=== PATIENT | female | born 1965 | race American Indian/Alaskan Native ===

== ENCOUNTER 2017-07-03 12:48 | Emergency (ER) | payer SELFPAY ==
[2017-07-03] MEDS ORDERED: ASPIRIN PO ONE (13:19)
[2017-07-03] MEDS ORDERED: ZOFRAN IV ONE (18:01)
[2017-07-03] MEDS ORDERED: MORPHINE IV ONE (18:01)
[2017-07-03] MEDS ORDERED: NACL 0.9% 1000 ML 1,000 ML IV ONE (18:01)
[2017-07-03] MEDS ORDERED: PEPCID IV ONE (18:02)
--- NOTE | 2017-07-03 18:10 | Emergency Department Report ---
ED Chest Pain HPI - General Chief Complaint: Chest Pain Stated Complaint: BACK/LEG PAIN Time Seen by Provider: 07/03/17 17:50 Source: patient, family, old records reviewed (no previous [facility] visit) Mode of arrival: Ambulatory Limitations: No Limitations - History of Present Illness Initial Comments: 51-year-old female with a past medical history obesity, DVT, PE currently not on any anticoagulant medication presents to the hospital complains of nausea and vomiting 2 days and chest and back pain. Patient has been having vomiting with poor by mouth tolerance 2 days. She states the panic starts in the middle of her mid back and radiates to her abdomen prior to vomiting. She has had mid central back pain for at least 2 weeks and has gradually worsened. She claims of pain to the lower part of her sternum that is reproducible with palpation. Occasional dyspnea on exertion reported. Mild generalized abdominal cramping reported prior to vomiting. She denies diarrhea or fever. Patient was apparently at another hospital 2 weeks ago with complaints of leg swelling and had a negative "blood times for blood clot". Patient took herself off of Eliquis several months ago. - Related Data Previous Rx's Medication Instructions Recorded Last Taken Type Docusate Sodium [Colace] 100 mg PO BID PRN #20 capsule 07/04/17 Unknown Rx Famotidine [Pepcid] 20 mg PO BID #30 tablet 07/04/17 Unknown Rx HYDROcodone/APAP 5-325 [[place] 1 each PO Q6HR PRN #20 tablet 07/04/17 Unknown Rx 5/325] Ibuprofen [Motrin] 800 mg PO Q8HR PRN #30 tablet 07/04/17 Unknown Rx Ondansetron [Zofran Odt] 4 mg PO Q8HR PRN #20 tab.rapdis 07/04/17 Unknown Rx Allergies Allergy/AdvReac Type Severity Reaction Status Date / Time No Known Allergies Allergy Unverified 07/03/17 13:09 Heart Score - HEART Score History: Slightly suspicious EKG: Normal Age: 45-65 Risk factors: 1-2 risk factors Troponin: < normal limit HEART Score: 2 ED Review of Systems ROS: Stated complaint: BACK/LEG PAIN Other details as noted in HPI Comment: All other systems reviewed and negative ED Past Medical Hx - Past Medical History Previous Medical History?: Yes Hx Deep Vein Thrombosis: Yes Hx Pulmonary Embolism: Yes Additional medical history: swelling lower extremities; back pain - Surgical History Past Surgical History?: Yes Additional Surgical History: tubaligation 1987 - Social History Smoking Status: Never Smoker Substance Use Type: None - Medications Home Medications: Home Medications Medication Instructions Recorded Confirmed Last Taken Type Docusate Sodium [Colace] 100 mg PO BID PRN #20 capsule 07/04/17 Unknown Rx Famotidine [Pepcid] 20 mg PO BID #30 tablet 07/04/17 Unknown Rx HYDROcodone/APAP 5-325 [[place] 1 each PO Q6HR PRN #20 tablet 07/04/17 Unknown Rx 5/325] Ibuprofen [Motrin] 800 mg PO Q8HR PRN #30 tablet 07/04/17 Unknown Rx Ondansetron [Zofran Odt] 4 mg PO Q8HR PRN #20 tab.rapdis 07/04/17 Unknown Rx ED Physical Exam - General Limitations: No Limitations - Other Other exam information: General: No limitations, patient is alert in no acute distress Head exam: Atraumatic, normocephalic Eyes exam: Normal appearance, pupils equal reactive to light, extraocular movements intact ENT: Moist mucous membrane, normal oropharynx Neck exam: Normal inspection, full range of motion, no meningismus nontender Respiratory exam: Clear to auscultation bilateral, no wheezes, rales, crackles Cardiovascular: Normal rate and rhythm, tenderness to the xiphoid process Abdomen: Soft, nondistended, and nontender, with normal bowel sounds, no rebound, or guarding Extremity: Full range of motion, bilateral leg edema without calf tenderness, warmth, or erythema Back: Normal Inspection, full range of motion, tenderness to midline thoracic lumbar area Neurologic: Alert, oriented x3, cranial nerves intact, no motor or sensory deficit Psychiatric: normal affect, normal mood Skin: Warm, dry, intact ED Course Vital Signs 07/03/17 07/03/17 07/03/17 13:09 18:02 18:16 Temperature 98.0 F Pulse Rate 74 75 83 Respiratory 18 15 12 Rate Blood Pressure 132/74 O2 Sat by Pulse Oximetry 07/03/17 07/03/17 07/03/17 18:46 19:00 19:16 Temperature Pulse Rate 64 88 Respiratory 18 16 Rate Blood Pressure 143/71 125/53 124/60 O2 Sat by Pulse 100 100 93 Oximetry 07/03/17 07/03/1718 19:30 19:46 20:00 Temperature Pulse Rate 71 70 68 Respiratory 10 L 14 17 Rate Blood Pressure 129/52 133/52 124/50 O2 Sat by Pulse 100 98 100 Oximetry 07/03/17 07/03/17 21:07 23:47 Temperature Pulse Rate 80 Respiratory 20 16 Rate Blood Pressure 120/57 O2 Sat by Pulse 100 98 Oximetry ED Medical Decision Making - Lab Data Result diagrams: 07/03/17 18:15 07/03/17 20:45 Lab Results 07/03/17 07/03/17 07/03/17 Range/Units 13:07 18:15 18:15 WBC 12.4 H (4.5-11.0) K/mm3 RBC 3.97 (3.65-5.03) M/mm3 Hgb 12.1 (10.1-14.3) gm/dl Hct 37.7 (30.3-42.9) % MCV 95 (79-97) fl MCH 31 (28-32) pg MCHC 32 (30-34) % RDW 14.1 (13.2-15.2) % Plt Count 299 (140-440) K/mm3 Lymph % (Auto) 16.8 (13.4-35.0) % Nelson % (Auto) 4.2 (0.0-7.3) % Eos % (Auto) 0.3 (0.0-4.3) % Baso % (Auto) 0.5 (0.0-1.8) % Lymph # 2.1 (1.2-5.4) K/mm3 Nelson # 0.5 (0.0-0.8) K/mm3 Eos # 0.0 (0.0-0.4) K/mm3 Baso # 0.1 (0.0-0.1) K/mm3 Seg Neutrophils % 78.2 H (40.0-70.0) % Seg Neutrophils # 9.6 H (1.8-7.7) K/mm3 PT 12.5 (12.2-14.9) Sec. INR 0.89 (0.87-1.13) APTT 31.5 (24.2-36.6) Sec. D-Dimer (0-234) ng/mlDDU Sodium Potassium Chloride Carbon Dioxide Anion Gap BUN Creatinine Estimated GFR BUN/Creatinine Ratio Glucose POC Glucose 116 H (70-105) Calcium Total Bilirubin AST ALT Alkaline Phosphatase Troponin T Total Protein Albumin Albumin/Globulin Ratio Lipase (13-60) units/L Urine Color (Yellow) Urine Turbidity (Clear) Urine pH (5.0-7.0) Ur Specific [place] (1.003-1.030) Urine Protein (Negative) mg/dL Urine Glucose (UA) (Negative) mg/dL Urine Ketones (Negative) mg/dL Urine Blood (Negative) Urine Nitrite (Negative) Urine Bilirubin (Negative) Urine Urobilinogen (<2.0) mg/dL Ur Leukocyte Esterase (Negative) Urine WBC (Auto) (0.0-6.0) /HPF Urine RBC (Auto) (0.0-6.0) /HPF U Epithel Cells (Auto) (0-13.0) /HPF Urine Mucus /HPF 07/03/17 07/03/17 07/03/17 Range/Units 18:15 18:15 18:15 WBC (4.5-11.0) K/mm3 RBC (3.65-5.03) M/mm3 Hgb (10.1-14.3) gm/dl Hct (30.3-42.9) % MCV (79-97) fl MCH (28-32) pg MCHC (30-34) % RDW (13.2-15.2) % Plt Count (140-440) K/mm3 Lymph % (Auto) (13.4-35.0) % Nelson % (Auto) (0.0-7.3) % Eos % (Auto) (0.0-4.3) % Baso % (Auto) (0.0-1.8) % Lymph # (1.2-5.4) K/mm3 Nelson # (0.0-0.8) K/mm3 Eos # (0.0-0.4) K/mm3 Baso # (0.0-0.1) K/mm3 Seg Neutrophils % (40.0-70.0) % Seg Neutrophils # (1.8-7.7) K/mm3 PT (12.2-14.9) Sec. INR (0.87-1.13) APTT (24.2-36.6) Sec. D-Dimer 329.5 H (0-234) ng/mlDDU Sodium TNR Potassium TNR Chloride TNR Carbon Dioxide TNR Anion Gap TNR BUN TNR Creatinine TNR Estimated GFR TNR BUN/Creatinine Ratio TNR Glucose TNR POC Glucose (70-105) Calcium TNR Total Bilirubin TNR AST TNR ALT TNR Alkaline Phosphatase TNR Troponin T TNR Total Protein TNR Albumin TNR Albumin/Globulin Ratio TNR Lipase 31 (13-60) units/L Urine Color (Yellow) Urine Turbidity (Clear) Urine pH (5.0-7.0) Ur Specific [place] (1.003-1.030) Urine Protein (Negative) mg/dL Urine Glucose (UA) (Negative) mg/dL Urine Ketones (Negative) mg/dL Urine Blood (Negative) Urine Nitrite (Negative) Urine Bilirubin (Negative) Urine Urobilinogen (<2.0) mg/dL Ur Leukocyte Esterase (Negative) Urine WBC (Auto) (0.0-6.0) /HPF Urine RBC (Auto) (0.0-6.0) /HPF U Epithel Cells (Auto) (0-13.0) /HPF Urine Mucus /HPF 07/03/17 07/03/17 07/03/17 Range/Units 18:15 20:45 20:45 WBC (4.5-11.0) K/mm3 RBC (3.65-5.03) M/mm3 Hgb (10.1-14.3) gm/dl Hct (30.3-42.9) % MCV (79-97) fl MCH (28-32) pg MCHC (30-34) % RDW (13.2-15.2) % Plt Count (140-440) K/mm3 Lymph % (Auto) (13.4-35.0) % Nelson % (Auto) (0.0-7.3) % Eos % (Auto) (0.0-4.3) % Baso % (Auto) (0.0-1.8) % Lymph # (1.2-5.4) K/mm3 Nelson # (0.0-0.8) K/mm3 Eos # (0.0-0.4) K/mm3 Baso # (0.0-0.1) K/mm3 Seg Neutrophils % (40.0-70.0) % Seg Neutrophils # (1.8-7.7) K/mm3 PT (12.2-14.9) Sec. INR (0.87-1.13) APTT (24.2-36.6) Sec. D-Dimer (0-234) ng/mlDDU Sodium TNR 138 Potassium TNR 4.4 Chloride TNR 99.5 Carbon Dioxide TNR 23 Anion Gap TNR 20 BUN TNR 8 Creatinine TNR 0.7 Estimated GFR TNR > 60 BUN/Creatinine Ratio TNR 11 Glucose TNR 89 POC Glucose (70-105) Calcium TNR 8.9 Total Bilirubin TNR 0.40 AST TNR 15 ALT TNR 10 Alkaline Phosphatase TNR 71 Troponin T < 0.010 < 0.010 Total Protein TNR 7.0 Albumin TNR 3.7 L Albumin/Globulin Ratio TNR 1.1 Lipase (13-60) units/L Urine Color (Yellow) Urine Turbidity (Clear) Urine pH (5.0-7.0) Ur Specific [place] (1.003-1.030) Urine Protein (Negative) mg/dL Urine Glucose (UA) (Negative) mg/dL Urine Ketones (Negative) mg/dL Urine Blood (Negative) Urine Nitrite (Negative) Urine Bilirubin (Negative) Urine Urobilinogen (<2.0) mg/dL Ur Leukocyte Esterase (Negative) Urine WBC (Auto) (0.0-6.0) /HPF Urine RBC (Auto) (0.0-6.0) /HPF U Epithel Cells (Auto) (0-13.0) /HPF Urine Mucus /HPF 07/03/17 Range/Units 21:05 WBC (4.5-11.0) K/mm3 RBC (3.65-5.03) M/mm3 Hgb (10.1-14.3) gm/dl Hct (30.3-42.9) % MCV (79-97) fl MCH (28-32) pg MCHC (30-34) % RDW (13.2-15.2) % Plt Count (140-440) K/mm3 Lymph % (Auto) (13.4-35.0) % Nelson % (Auto) (0.0-7.3) % Eos % (Auto) (0.0-4.3) % Baso % (Auto) (0.0-1.8) % Lymph # (1.2-5.4) K/mm3 Nelson # (0.0-0.8) K/mm3 Eos # (0.0-0.4) K/mm3 Baso # (0.0-0.1) K/mm3 Seg Neutrophils % (40.0-70.0) % Seg Neutrophils # (1.8-7.7) K/mm3 PT (12.2-14.9) Sec. INR (0.87-1.13) APTT (24.2-36.6) Sec. D-Dimer (0-234) ng/mlDDU Sodium Potassium Chloride Carbon Dioxide Anion Gap BUN Creatinine Estimated GFR BUN/Creatinine Ratio Glucose POC Glucose (70-105) Calcium Total Bilirubin AST ALT Alkaline Phosphatase Troponin T Total Protein Albumin Albumin/Globulin Ratio Lipase (13-60) units/L Urine Color Yellow (Yellow) Urine Turbidity Clear (Clear) Urine pH 5.0 (5.0-7.0) Ur Specific [place] 1.053 H (1.003-1.030) Urine Protein <15 mg/dl (Negative) mg/dL Urine Glucose (UA) Neg (Negative) mg/dL Urine Ketones 20 (Negative) mg/dL Urine Blood Neg (Negative) Urine Nitrite Neg (Negative) Urine Bilirubin Neg (Negative) Urine Urobilinogen < 2.0 (<2.0) mg/dL Ur Leukocyte Esterase Sm (Negative) Urine WBC (Auto) 3.0 (0.0-6.0) /HPF Urine RBC (Auto) 3.0 (0.0-6.0) /HPF U Epithel Cells (Auto) 10.0 (0-13.0) /HPF Urine Mucus 2+ /HPF - EKG Data -: EKG Interpreted by [facility] EKG shows normal: sinus rhythm, axis (24), QRS complexes (99), ST-T waves (no stemi/t inv) Rate: normal - EKG Data When compared to previous EKG there are: previous EKG unavailable - Radiology Data Radiology results: report reviewed CXR PA AND LAT IMPRESSION: Dextroscoliosis thoracolumbar spine with mild multilevel marginal osteophytic change. Slight asymmetry of the right thoracic cage. Normal heart size. Elevated left hemidiaphragm. Clear lungs. THORACOLUMBAR XRAY FINDINGS: Multilevel marginal osteophytic change. No definite compression fracture. Limited thoracolumbar junction. Mild levoscoliosis. Spinous processes are midline. IMPRESSION: Limited thoracolumbar two view shows multilevel marginal osteophytic change without compression fracture. Normal alignment. CT ABD PELVIS IV CONTRAST FINDINGS: Evaluation of the abdomen and pelvis is limited due to streak artifacts from the arms. Liver, spleen, pancreas and adrenal glands are within normal limits. Bilateral kidneys demonstrate uniform enhancement without hydronephrosis. Urinary bladder is a minimally filled. Aorta is of normal caliber. There is no free fluid or free air. Gallbladder demonstrates multiple calculi measuring about 7 millimeters. Otherwise gallbladder demonstrates normal outlines. Small bowel loops are within normal limits. Multiple colonic diverticula are noted without evidence of diverticulitis. There is moderate degree residual stool. Appendix is normal. Small hiatal hernia is noted. Vertebral height is normal. IMPRESSION: There is evidence of cholelithiasis. Ultrasound evaluation is root recommended to rule out cholecystitis. No other acute abnormality is identified. CTA CHEST IMPRESSION: Limited study due to suboptimal opacification of pulmonary arterial tree No obvious evidence of pulmonary embolism No acute pulmonary process Cholelithiasis. Ultrasound evaluation is recommended. us ABD: IMPRESSION: Multiple gallstones. Gallbladder wall thickening. No biliary dilatation. - Medical Decision Making Patient resting and pain free without any vomiting after initial ED treatment meds. Pt appears to be asking questions about her back pain and she was informed to x-ray significant for arthritis. CT angiogram negative for PE and suspected nausea, vomiting, epigastric pain is related to gallstones. Patient encouraged multiple times to follow up with the management. - Differential Diagnosis pancreatitis, biliary colic, FL, dissection, arthritis, PE, unstable angina Critical Care Time: No Critical care attestation.: If time is entered above; I have spent that time in minutes in the direct care of this critically ill patient, excluding procedure time. ED Disposition Clinical Impression: Biliary colic, Arthritis of spine, Vomiting, Dehydration Disposition: - TO HOME OR SELFCARE Is pt being admited?: No Does the pt Need Aspirin: Yes Instructions: Back Pain (ED), Biliary Colic (ED) Additional Instructions: Take the medication as prescribed. It is very important that you follow up with a primary care doctor and a surgeon for further treatment and evaluation of your stones in the gallbladder and your ongoing back pain. Prescriptions: Docusate Sodium [Colace] 100 mg PO BID PRN #20 capsule PRN Reason: Constipation Famotidine [Pepcid] 20 mg PO BID #30 tablet HYDROcodone/APAP 5-325 [[place] 5/325] 1 each PO Q6HR PRN #20 tablet PRN Reason: Pain Ibuprofen [Motrin] 800 mg PO Q8HR PRN #30 tablet PRN Reason: Pain Ondansetron [Zofran Odt] 4 mg PO Q8HR PRN #20 tab.rapdis PRN Reason: Nausea And Vomiting Referrals: RHIANNA CORNELL MD [Staff Physician] - 3-5 Days (primary care doctor) ANTHONY DONOHUE DO [Staff Physician] - 3-5 Days (general surgeon) [facility] [Provider Group] - 3-5 Days (primary care clinic) Time of Disposition: 00:28
[2017-07-03 18:34] LABS: Basophils # (Auto) 0.1 K/mm3 (0.0-0.1); Basophils % (Auto) 0.5 % (0.0-1.8); Eosinophils % (Auto) 0.3 % (0.0-4.3); Hematocrit 37.7 % (30.3-42.9); Hemoglobin 12.1 gm/dl (10.1-14.3); Lymphocytes # (Auto) 2.1 K/mm3 (1.2-5.4); Lymphocytes % (Auto) 16.8 % (13.4-35.0); Mean Corpuscular HGB Conc 32 % (30-34); Mean Corpuscular Hemoglobin 31 pg (28-32); Mean Corpuscular Volume 95 fl (79-97); Monocytes # (Auto) 0.5 K/mm3 (0.0-0.8); Monocytes % (Auto) 4.2 % (0.0-7.3); Platelet Count 299 K/mm3 (140-440); Red Blood Count 3.97 M/mm3 (3.65-5.03); Red Cell Distribution Width 14.1 % (13.2-15.2)
[2017-07-03 18:43] LABS: INR 0.89 (0.87-1.13)
[2017-07-03 18:44] LABS: Partial Thromboplastin Time 31.5 Sec. (24.2-36.6)
[2017-07-03 19:06] LABS: Alanine Aminotransferase TNR units/L (7-56)
[2017-07-03 19:09] LABS: Blood Urea Nitrogen TNR mg/dL (7-17)
[2017-07-03 19:10] LABS: BUN/Creatinine Ratio TNR; Calcium TNR mg/dL (8.4-10.2)
[2017-07-03 19:11] LABS: Albumin TNR g/dL (3.9-5); Hemolysis Index TNR
[2017-07-03] MEDS ORDERED: NACL ONE (19:55)
--- NOTE | 2017-07-03 20:08 | XRay Report ---
FINAL REPORT EXAM: XR SPINE THORACOLUMBAR 2V HISTORY: midline back pain TECHNIQUE: Two views thoracolumbar spine Comparison: None FINDINGS: Multilevel marginal osteophytic change. No definite compression fracture. Limited thoracolumbar junction. Mild levoscoliosis. Spinous processes are midline. IMPRESSION: Limited thoracolumbar two view shows multilevel marginal osteophytic change without compression fracture. Normal alignment.
[2017-07-03 20:09] LABS: Blood Urea Nitrogen TNR mg/dL (7-17)
[2017-07-03 20:10] LABS: Alanine Aminotransferase TNR units/L (7-56); BUN/Creatinine Ratio TNR; Calcium TNR mg/dL (8.4-10.2)
[2017-07-03 20:11] LABS: Albumin TNR g/dL (3.9-5); Hemolysis Index TNR
--- NOTE | 2017-07-03 20:11 | XRay Report ---
FINAL REPORT EXAM: XR CHEST ROUTINE 2V HISTORY: cp TECHNIQUE: Two views of the chest Comparison: None FINDINGS: Normal heart size. Dextroscoliosis thoracic spine. Lungs are clear and well expanded without focal infiltrate or consolidation. There is multilevel marginal osteophytic change thoracic spine. There is mild disruption of the normal louis-shaped right thoracic cage likely in relation to previous rib trauma. No fracture identified. Degenerative change of the right 1st costosternal chondral junction. No pleural effusion. IMPRESSION: Dextroscoliosis thoracolumbar spine with mild multilevel marginal osteophytic change. Slight asymmetry of the right thoracic cage. Normal heart size. Elevated left hemidiaphragm. Clear lungs.
--- NOTE | 2017-07-03 21:02 | Cat Scan Report ---
FINAL REPORT PROCEDURE: CT ANGIO CHEST TECHNIQUE: Computerized tomographic angiography of the chest was performed after the IV injection of iodinated nonionic contrast including image processing. The image data was postprocessed using 2-dimensional multiplanar reformatted (MPR) and 3-dimensional (MIP and/or volume rendered) techniques. HISTORY: cp, hx of pe/dvt, mild elevated ddimer elevation COMPARISON: No prior studies are available for comparison. FINDINGS: This study is limited due to suboptimal opacification of pulmonary arterial tree. There are no obvious pulmonary arterial filling defects. Aorta is of normal caliber. There is no evidence of dissection. Hilar structures are within normal limits. There is no lymphadenopathy. No pericardial effusion is noted. Bilateral lungs are free of infiltrates or mass lesions. Pleural spaces are clear. Evaluation of the upper abdominal structures is limited due to streak artifacts from the arms. Visualized portion of gallbladder demonstrates small calculi measuring about 7 millimeters. IMPRESSION: Limited study due to suboptimal opacification of pulmonary arterial tree No obvious evidence of pulmonary embolism No acute pulmonary process Cholelithiasis. Ultrasound evaluation is recommended.
--- NOTE | 2017-07-03 21:06 | Cat Scan Report ---
FINAL REPORT PROCEDURE: CT ABDOMEN PELVIS W CON TECHNIQUE: Computerized axial tomography of the abdomen and pelvis was performed after the IV injection of iodinated nonionic contrast. HISTORY: abd pain, vomiting COMPARISON: No prior studies are available for comparison. FINDINGS: Evaluation of the abdomen and pelvis is limited due to streak artifacts from the arms. Liver, spleen, pancreas and adrenal glands are within normal limits. Bilateral kidneys demonstrate uniform enhancement without hydronephrosis. Urinary bladder is a minimally filled. Aorta is of normal caliber. There is no free fluid or free air. Gallbladder demonstrates multiple calculi measuring about 7 millimeters. Otherwise gallbladder demonstrates normal outlines. Small bowel loops are within normal limits. Multiple colonic diverticula are noted without evidence of diverticulitis. There is moderate degree residual stool. Appendix is normal. Small hiatal hernia is noted. Vertebral height is normal. IMPRESSION: There is evidence of cholelithiasis. Ultrasound evaluation is root recommended to rule out cholecystitis. No other acute abnormality is identified.
[2017-07-03 21:14] LABS: Alanine Aminotransferase 10 units/L (7-56); Albumin 3.7 g/dL (3.9-5); BUN/Creatinine Ratio 11; Blood Urea Nitrogen 8 mg/dL (7-17); Calcium 8.9 mg/dL (8.4-10.2); Hemolysis Index 36
[2017-07-03 21:19] LABS: Bilirubin,Urine NEG (Negative); Blood,Urine NEG (Negative); Color,Urine Yellow (Yellow); Mucus,Urine 2+ /HPF; Protein,Urine <15 mg/dL mg/dL (Negative); Urobilinogen,Urine < 2.0 mg/dL (<2.0)
--- NOTE | 2017-07-03 23:25 | Ultrasound Report ---
FINAL REPORT PROCEDURE: US ABDOMEN LIMITED TECHNIQUE: Real-time sonography in multiple planes of the gallbladder fossa and CBD with imaging of the adjacent liver, pancreas, and right kidney was performed with image documentation. CPT 61430 HISTORY: ruq pain, gallstones COMPARISON: CT FINDINGS: Liver: Increased echogenicity consistent with fatty infiltration. Gallbladder: Multiple stones. Wall thickening measuring 0.4 cm. Intrahepatic bile ducts: Normal . Extrahepatic bile ducts: Normal. Common duct measures 0.4 cm. Pancreas: Normal as visualized. Right kidney: Normal echotexture. No focal renal mass, calculus, or hydronephrosis. Other: No free fluid. IMPRESSION: Multiple gallstones. Gallbladder wall thickening. No biliary dilatation.
[2017-07-04] MEDS ORDERED: NORCO 5/325 PO ONE (00:46)
[2017-07-04] MEDS ORDERED: NORCO 5/325 ONE (00:46)
[2017-07-04 01:39] VITALS: BP 136/85
== END 2017-07-04 01:05 | disposition home or self-care (01) ==
LOC: ED 12:48
DX: K80.50 Calculus of bile duct without cholangitis or cholecystitis without obstruction (principal); M46.90 Unspecified inflammatory spondylopathy, site unspecified; E86.0 Dehydration; Z98.51 Tubal ligation status; Z86.718 Personal history of other venous thrombosis and embolism
CPT/HCPCS: 36415; 71046; 71275; 72080; 74177; 76705; 80053; 81001; 82962; 83690; 84484; 85025; 85379; 85610; 85730; 93005; 93010; 96361; 96374; 96375; 99285; J2270; J2405; J7030; Q9967

== ENCOUNTER 2020-10-31 02:28 | Emergency (ER) | payer MEDICAID ==
[2020-10-31 04:58] VITALS: BP 150/73
--- NOTE | 2020-10-31 06:01 | Emergency Department Report ---
ED General Adult HPI - General Chief complaint: Extremity Problem,Nontraumatic Stated complaint: EDEMA IN LEGS PUI?: No Time Seen by Provider: 10/31/20 05:58 Source: patient, RN notes reviewed Mode of arrival: Ambulatory Limitations: No Limitations - History of Present Illness Initial comments: During the history and physical examination, I am chaperoned by research manager Destiny Chu. The patient is a 54-year-old female. She endorses a past medical history of obesity, obesity related DVT in 2017, and dependent edema. She is visiting from [place]. She has been here for 6 to 8 months. She does not have a local primary care doctor. She presents to the ER today with a request for Lasix refill. She has not taken Lasix in 6 to 8 months. She complains of painless nontraumatic lower extremity swelling. She denies all other additional injuries and complaints. She denies travel, surgery, immobilization, chest pain, shortness of breath, headache, neck pain, homicidality, suicidality, hallucinations, or any other complaints. No recent blood work has been performed. -: Gradual, month(s) Location: left, right, lower extremity Severity scale (0 -10): 0 Consistency: constant Improves with: none Worsens with: none Associated Symptoms: denies other symptoms - Related Data Previous Rx's Medication Instructions Recorded Last Taken Type Docusate Sodium [Colace] 100 mg PO BID PRN #20 capsule 07/04/17 Unknown Rx Famotidine [Pepcid] 20 mg PO BID #30 tablet 07/04/17 Unknown Rx HYDROcodone/APAP 5-325 [Molena 1 each PO Q6HR PRN #20 tablet 07/04/17 Unknown Rx 5/325] Ibuprofen [Motrin] 800 mg PO Q8HR PRN #30 tablet 07/04/17 Unknown Rx Ondansetron [Zofran Odt] 4 mg PO Q8HR PRN #20 tab.rapdis 07/04/17 Unknown Rx Allergies Allergy/AdvReac Type Severity Reaction Status Date / Time No Known Allergies Allergy Unverified 07/03/17 13:09 ED Review of Systems ROS: Stated complaint: EDEMA IN LEGS Other details as noted in HPI Comment: All other systems reviewed and negative Musculoskeletal: other (Lower extremity swelling) ED Past Medical Hx - Past Medical History Previous Medical History?: Yes Hx Deep Vein Thrombosis: Yes Hx Pulmonary Embolism: Yes Additional medical history: swelling lower extremities; back pain - Surgical History Past Surgical History?: Yes Additional Surgical History: tubaligation 1987 - Social History Smoking Status: Current Some Day Smoker - Medications Home Medications: Home Medications Medication Instructions Recorded Confirmed Last Taken Type Docusate Sodium [Colace] 100 mg PO BID PRN #20 capsule 07/04/17 Unknown Rx Famotidine [Pepcid] 20 mg PO BID #30 tablet 07/04/17 Unknown Rx HYDROcodone/APAP 5-325 [Molena 1 each PO Q6HR PRN #20 tablet 07/04/17 Unknown Rx 5/325] Ibuprofen [Motrin] 800 mg PO Q8HR PRN #30 tablet 07/04/17 Unknown Rx Ondansetron [Zofran Odt] 4 mg PO Q8HR PRN #20 tab.rapdis 07/04/17 Unknown Rx ED Physical Exam - General Limitations: No Limitations General appearance: alert, in no apparent distress, obese - Head Head exam: Present: atraumatic, normocephalic - Eye Eye exam: Present: normal appearance, EOMI. Absent: nystagmus - ENT ENT exam: Present: normal exam, normal orophraynx, mucous membranes moist, normal external ear exam - Neck Neck exam: Present: normal inspection, full ROM. Absent: tenderness, meningismus - Respiratory Respiratory exam: Present: normal lung sounds bilaterally. Absent: respiratory distress, wheezes, rales, rhonchi, stridor, decreased breath sounds - Cardiovascular Cardiovascular Exam: Present: regular rate, normal rhythm, normal heart sounds. Absent: bradycardia, tachycardia, irregular rhythm, systolic murmur, diastolic murmur, rubs, gallop - GI/Abdominal GI/Abdominal exam: Present: soft. Absent: distended, tenderness, guarding, rebound, rigid, pulsatile mass - Extremities Exam Extremities exam: Present: normal inspection, full ROM, pedal edema, other (2+ pulses noted in the bilateral upper and lower extremities. There is no palpable cord. negative Homans sign. Muscular compartments are soft. The pelvis is stable.). Absent: calf tenderness - Back Exam Back exam: Present: normal inspection, full ROM. Absent: tenderness, CVA tenderness (R), CVA tenderness (L), paraspinal tenderness, vertebral tenderness - Neurological Exam Neurological exam: Present: alert, oriented X3, normal gait, other (No facial droop. Tongue midline. Extraocular movements intact bilaterally. Facial sensation intact to light touch in V1, V2, V3 distribution bilaterally. 5 and a 5 strength in 4 extremities. Sensation intact to light touch in 4 extremities.). Absent: motor sensory deficit - Psychiatric Psychiatric exam: Present: normal affect, normal mood. Absent: homicidal ideation, suicidal ideation - Skin Skin exam: Present: warm, dry, intact, normal color. Absent: rash ED Course Vital Signs 10/31/20 10/31/20 10/31/20 03:45 04:52 04:56 Temperature 97.8 F 98.2 F Pulse Rate 65 70 Respiratory 20 16 Rate Blood Pressure 182/75 150/73 [Right] O2 Sat by Pulse 99 100 99 Oximetry ED Medical Decision Making - Lab Data Vital Signs 10/31/20 10/31/20 10/31/20 03:45 04:52 04:56 Temperature 97.8 F 98.2 F Pulse Rate 65 70 Respiratory 20 16 Rate Blood Pressure 182/75 150/73 [Right] O2 Sat by Pulse 99 100 99 Oximetry - Medical Decision Making Differential diagnosis, including the not limited to: Dependent edema, renal insufficiency, hepatic insufficiency Assessment and plan: 54-year-old female, who is clinically sober, with a GCS of 15, who is awake, alert, oriented, exhibits decision-making capacity, is free from distracting injury, with a primary complaint of lower extremity swelling, requesting Lasix. Have recommended laboratory studies to screen for renal insufficiency and hepatic insufficiency. Patient refusing/declining laboratory studies. Counseled patient that we would need these laboratory studies to exclude medical illness. Have also counseled patient that without these laboratory studies, cannot safely prescribe Lasix. Patient continues to decline/refuse. Therefore, she will be discharged AGAINST MEDICAL ADVICE. I have counseled the patient that she may return to the emergency room right away if and when she changes her mind. At the time of discharge, she is awake, alert, oriented, sober, exhibiting decision-making cap acity, and free from distracting injury. Understands risks of leaving without a complete medical evaluation. Entire conversation is witnessed by Destiny Chu. Critical care attestation.: If time is entered above; I have spent that time in minutes in the direct care of this critically ill patient, excluding procedure time. ED Disposition Clinical Impression: Swelling of lower extremity Disposition: [id number] LEFT AGAINST MED ADVICE Is pt being admited?: No Does the pt Need Aspirin: No Condition: Undetermined Instructions: Edema Additional Instructions: As we discussed, you have left the hospital/emergency room AGAINST MEDICAL ADVICE. By leaving, you risked , disability, paralysis, permanent loss of quality of life. The ER is open 24 hours a day, 7 days a week. It never closes. Please return to the emergency room right away if and when you change your mind. If you decide not to return to the emergency room, please follow-up with the listed physician referrals as soon as possible. Patient may purchase [id number] compression stockings as she likes to assist with complaints of lower extremity swelling. Referrals: [facility] [Provider Group] - BLUE ROWAN MD [Staff Physician] - TEE
== END 2020-10-31 06:16 | disposition left against medical advice (07) ==
LOC: ED 02:28
DX: M79.89 Other specified soft tissue disorders (principal)
CPT/HCPCS: 99282